=== PATIENT | female | born 1995 | race Caucasian/White ===

== ENCOUNTER → 2020-09-16 | Outpatient (CLI) | payer OTHER ==
[~2020-09-16] MED LIST: PHARBETOL500 MG PO; SODIUM CHLORIDE50 M2 IV
== END | disposition home or self-care (01) ==
LOC: CLINIC 14:59
DX: J45.901 Unspecified asthma with (acute) exacerbation (principal); D64.9 Anemia, unspecified; E11.69 Type 2 diabetes mellitus with other specified complication